=== PATIENT | female | born 1960 | race Caucasian/White ===

== ENCOUNTER 2016-07-15 18:04 | Inpatient (IN) | payer BC ==
[~2016-07-15] VITALS: Ht 167.6 cm; Wt 50.1 kg
[~2016-07-15 18:04] MED LIST: ALPR-138 PO; BP MED PO
[2016-07-15 18:08] VITALS: PULSE 89; RESP 18; TEMP 97.8; O2SAT 96
[2016-07-15 18:20] VITALS: BP 80/59; PULSE 81; RESP 16; O2SAT 98
[2016-07-15] MEDS ORDERED: OMEP20TA PO (18:30)
[2016-07-15] MEDS ORDERED: ALPR.25 PO (18:30)
[2016-07-15] MEDS ORDERED: LISI-515 PO (18:30)
[2016-07-15] MEDS ORDERED: LORA-373 PO (18:30)
[2016-07-15] MEDS ORDERED: LEXA20TA PO (18:30)
[2016-07-15] MEDS ORDERED: SODIUM CHLOR 0.9% 1000 ML INJ 1,000 ML IV ONE (18:45)
--- NOTE | 2016-07-15 18:46 | PD ---
HPI Chief Complaint: Syncope/Near-Syncope Time Seen by Provider: 18:34 Travel History International Travel<30 days: No Contact w/Intl Traveler<30days: No Traveled to known affect area: No History of Present Illness HPI This 55-year-old female presents after a fall at home. She has been having vomiting and diarrhea throughout the day. She got up to go to the bathroom and got very faint and fell to the ground. She is not sure if she passed out completely. She doesn't think so area and she was incontinent of stool. She was able to get back up. She hit her face. She does have a history of anxiety and hypertension. She is currently on Xanax and lorazepam. She is not supposed to take them together but she took both of them this morning. She had been a heavy drinker but stopped drinking on June 29. She stopped drinking because her doctor told her she had some abnormal liver function. She says that she has had 3 episodes today where she almost fell. She has been taking ensure to try to gain some weight PFSH Past Medical History Hx Anticoagulant Therapy: No Arthritis: Yes (NECK) Anxiety: Yes Depression: Yes Cancer: Yes (UTERINE) Cardiovascular Problems: Yes (HTN, CHOL) Diabetes: No Diminished Hearing: No Endocrine: No Genitourinary: No Hypertension: Yes Immune Disorder: No Musculoskeletal: Yes (TMJ) Neurologic: No Psychiatric: Yes Reproductive: No Respiratory: No Immunizations Current: Yes Tetanus Vaccination: < 5 Years Influenza Vaccination: Yes ?: Not Past Surgical History Gynecologic Surgery: Yes (UTERINE CA) Hysterectomy: Yes (WHEN PT WAS 21 Y.O) Other Surgery: Yes (TUMOR REMOVED FROM RIGHT NECK BREAST AUG DEVIATED SEPTUM) Social History Alcohol Use: No Tobacco Use: Yes (2 PPD) Substance Use: No Allergies-Medications (Allergen,Severity, Reaction): Coded Allergies: Codeine (Verified Allergy, Severe, 07/15/16) Reported Meds & Prescriptions Reported Meds & Active Scripts Active Reported Lisinopril 20 Mg Tab 20 Mg PO DAILY Lorazepam 0.5 Mg Tab 0.5 Mg PO BID PRN Xanax (Alprazolam) 0.25 Mg Tab 0.25 Mg PO Q8H PRN Lexapro (Escitalopram Oxalate) 20 Mg Tab 20 Mg PO DAILY Omeprazole 20 Mg Tab 20 Mg PO DAILY Review of Systems General / Constitutional: No: Fever, Chills Eyes: No: Diploplia, Blurred Vision HENT: Positive: Lightheadedness, No: Headaches Cardiovascular: No: Chest Pain or Discomfort, Palpitations Respiratory: No: Cough, Shortness of Breath Gastrointestinal: Positive: Vomiting, Diarrhea Genitourinary: No: Frequency Musculoskeletal: Positive: Myalgias, Pain Skin: No Rash Neurologic: Positive: Weakness, Dizziness, No: Focal Abnormalities Psychiatric: Positive: Anxiety Endocrine: No: Heat Intolerance Hematologic/Lymphatic: No: Easy Bruising Physical Exam Narrative GENERAL: Well-developed female. SKIN: Focused skin assessment warm/dry. HEAD: Atraumatic. Normocephalic. EYES: Pupils equal and round. No scleral icterus. No injection or drainage. ENT: There is dried blood in the nose. Nose is quite tender and swollen. Mucous membranes dry NECK: Trachea midline. No JVD. CARDIOVASCULAR: Regular rate and rhythm. No murmur appreciated. RESPIRATORY: No accessory muscle use. Clear to auscultation. Breath sounds equal bilaterally. GASTROINTESTINAL: Abdomen soft, non-tender, nondistended. Hepatic and splenic margins not palpable. MUSCULOSKELETAL: No obvious deformities. No clubbing. No cyanosis. No edema. There is swelling and tenderness of the right shoulder. Movement causes a lot of pain. Skin is intact. Distal pulses and sensation are intact NEUROLOGICAL: Awake and alert. No obvious cranial nerve deficits. Motor grossly within normal limits. Normal speech. PSYCHIATRIC: Appropriate mood and affect; insight and judgment normal. Data Data Last Documented VS Vital Signs Date Time Temp Pulse Resp B/P Pulse Ox O2 Delivery O2 Flow Rate FiO2 07/15/16 19:09 75 18 109/68 100 Room Air 07/15/16 18:08 97.8 Orders Electrocardiogram (07/15/16 18:41) Complete Blood Count With Diff (07/15/16 18:41) Comprehensive Metabolic Panel (07/15/16 18:41) Troponin I (07/15/16 18:41) Prothrombin Time / Inr (Pt) (07/15/16 18:41) Act Partial Throm Time (Ptt) (07/15/16 18:41) Urinalysis - C+S If Indicated (07/15/16 18:41) Magnesium (Mg) (07/15/16 18:41) Ct Brain W/O Iv Contrast(Rout) (07/15/16 18:41) Ct Facial Bones W/O Iv Cont (07/15/16 18:41) Drug Screen, Random Urine (07/15/16 18:41) Alcohol (Ethanol) (07/15/16 18:41) Sodium Chlor 0.9% 1000 Ml Inj (Ns 1000 M (07/15/16 18:45) Ondansetron Inj (Zofran Inj) (07/15/16 19:15) Morphine Inj (Morphine Inj) (07/15/16 19:15) Potassium Chlor 10 Meq Premix (Kcl 10 Me (07/15/16 19:30) Shoulder, Limited(2vws) (07/15/16 18:41) Labs Laboratory Tests Test 07/15/16 18:40 White Blood Count 14.8 TH/MM3 Red Blood Count 4.05 MIL/MM3 Hemoglobin 12.5 GM/DL Hematocrit 36.7 % Mean Corpuscular Volume 90.5 FL Mean Corpuscular Hemoglobin 30.8 PG Mean Corpuscular Hemoglobin 34.1 % Concent Red Cell Distribution Width 11.5 % Platelet Count 344 TH/MM3 Mean Platelet Volume 8.1 FL Neutrophils (%) (Auto) 90.2 % Lymphocytes (%) (Auto) 5.8 % Monocytes (%) (Auto) 3.5 % Eosinophils (%) (Auto) 0.3 % Basophils (%) (Auto) 0.2 % Neutrophils # (Auto) 13.4 TH/MM3 Lymphocytes # (Auto) 0.9 TH/MM3 Monocytes # (Auto) 0.5 TH/MM3 Eosinophils # (Auto) 0.0 TH/MM3 Basophils # (Auto) 0.0 TH/MM3 CBC Comment DIFF FINAL Differential Comment Prothrombin Time 10.0 SEC Prothromb Time International 0.9 RATIO Ratio Activated Partial 25.9 SEC Thromboplast Time Sodium Level 136 MEQ/L Potassium Level 3.1 MEQ/L Chloride Level 96 MEQ/L Carbon Dioxide Level 27.4 MEQ/L Anion Gap 13 MEQ/L Blood Urea Nitrogen 17 MG/DL Creatinine 2.10 MG/DL Estimat Glomerular Filtration 24 ML/MIN Rate Random Glucose 170 MG/DL Calcium Level 9.1 MG/DL Magnesium Level 2.1 MG/DL Total Bilirubin 0.3 MG/DL Aspartate Amino Transf 17 U/L (AST/SGOT) Alanine Aminotransferase 19 U/L (ALT/SGPT) Alkaline Phosphatase 76 U/L Troponin I LESS THAN 0.02 NG/ML Total Protein 7.7 GM/DL Albumin 3.5 GM/DL Ethyl Alcohol Level LESS THAN 3 MG/DL MDM Medical Decision Making Medical Screen Exam Complete: Yes Emergency Medical Condition: Yes Medical Record Reviewed: Yes Differential Diagnosis Differential includes gastroenteritis, dehydration, fractured shoulder, subdural hemorrhage, fractured nose Narrative Course X-ray shows surgical neck fracture of the right humerus with mild angulation and displacement. Blood pressure has been low at 80/60. Blood work shows that her creatinine today is 2.1 which is significantly higher than it has been in the past. CT of the brain is negative. CT facial bones show slightly depressed fracture of the tip of the nose Diagnosis Primary Impression: Acute kidney injury Additional Impression: Fracture of right humerus Sergio Antonio MD July 15, 2016 18:46
[2016-07-15 19:01] LABS: AUTOMATED NEUTROPHIL # 13.4 TH/MM3 (1.8-7.7); BASOPHIL % 0.2 % (0.0-2.0); EOSINOPHIL % 0.3 % (0.0-4.0); HEMATOCRIT 36.7 % (35.0-46.0); HEMO FLAGS DIFF FINAL; LYMPH % 5.8 % (9.0-44.0); LYMPHOCYTE # 0.9 TH/MM3 (1.0-4.8); MEAN CELL VOLUME 90.5 FL (80.0-100.0); MEAN CORPUSCULAR HEMOGLOBIN 30.8 PG (27.0-34.0); MEAN CORPUSCULAR HGB CONC 34.1 % (32.0-36.0); MONO % 3.5 % (0.0-8.0); NEUT % 90.2 % (16.0-70.0); PLATELET COUNT 344 TH/MM3 (150-450); RED BLOOD COUNT 4.05 MIL/MM3 (4.00-5.30); RED CELL DISTRIBUTION WIDTH 11.5 % (11.6-17.2); WHITE BLOOD COUNT 14.8 TH/MM3 (4.0-11.0)
[2016-07-15 19:09] VITALS: BP 109/68; PULSE 75; RESP 18; O2SAT 100
[2016-07-15 19:11] LABS: CHLORIDE 96 MEQ/L (98-107); POTASSIUM 3.1 MEQ/L (3.5-5.1); SODIUM (NA) 136 MEQ/L (136-145)
[2016-07-15 19:15] LABS: ANION GAP 13 MEQ/L (5-15); BICARBONATE 27.4 MEQ/L (21.0-32.0); BLOOD UREA NITROGEN 17 MG/DL (7-18); MAGNESIUM 2.1 MG/DL (1.5-2.5)
[2016-07-15] MEDS ORDERED: ONDANSETRON HCL 4 MG/2 ML VIAL IV PUSH ONE (19:15)
[2016-07-15] MEDS ORDERED: MORPHINE SULFATE 8 MG/ML INJ IV PUSH ONE (19:15)
[2016-07-15 19:17] LABS: APTT (PATIENT) 25.9 SEC (24.3-30.1); INTERNATIONAL NORMALIZED RATIO 0.9 RATIO
[2016-07-15 19:18] LABS: ALT (GPT) 19 U/L (10-53); AST (GOT) 17 U/L (15-37); GLOMERULAR FILTRATION RATE 24 ML/MIN (>89)
[2016-07-15 19:20] LABS: TOTAL BILIRUBIN ADULT 0.3 MG/DL (0.2-1.0)
[2016-07-15 19:21] LABS: ALKALINE PHOSPHATASE 76 U/L (45-117)
[2016-07-15] MEDS ORDERED: POTASSIUM CHLOR 10 MEQ PREMIX 100 ML IV ONE (19:30)
--- NOTE | 2016-07-15 19:42 | RADHPO ---
EXAM DATE/TIME: 07/15/2016 19:06 [facility] COMPARISON: No previous studies available for comparison. INDICATIONS : Right shoulder pain post fall. MEDICAL HISTORY : None. SURGICAL HISTORY : None. ENCOUNTER: Initial ACUITY: 1 day PAIN SCORE: 10/10 LOCATION: Right upper extremity FINDINGS: There is a comminuted fracture in the surgical neck region of the right humerus. There is mild anteri or displacement and mild posterolateral angulation deformity. Humeral head and greater tuberosity matt ssly intact. No subluxation. CONCLUSION: Surgical neck fracture of the right humerus with mild angulation and displacement deformity. Baron Jimenez MD on July 15, 2016 at 19:40 Board Certified Radiologist. This report was verified electronically.
--- NOTE | 2016-07-15 20:02 | RADHPO ---
EXAM DATE/TIME: 07/15/2016 19:39 [facility] COMPARISON: CT BRAIN W/O CONTRAST, June 02, 2011, 13:49. INDICATIONS : Syncopal episode. Passed out, fell and hit her face. RADIATION DOSE: 58.53 CTDIvol (mGy) MEDICAL HISTORY : Hypertension. Uterine cancer. SURGICAL HISTORY : Hysterectomy. ENCOUNTER: Initial ACUITY: 1 day PAIN SCALE: 6/10 LOCATION: cranial TECHNIQUE: Multiple contiguous axial images were obtained of the head. Using automated exposure control and adj ustment of the mA and/or kV according to patient size, radiation dose was kept as low as reasonably a chievable to obtain optimal diagnostic quality images. FINDINGS: CEREBRUM: The ventricles are normal for age. No evidence of midline shift, mass lesion, hemorrhage or acute in farction. No extra-axial fluid collections are seen. POSTERIOR FOSSA: The cerebellum and brainstem are intact. The 4th ventricle is midline. The cerebellopontine angle i s unremarkable. EXTRACRANIAL: The visualized portion of the orbits is intact. SKULL: The calvaria is intact. No evidence of skull fracture. CONCLUSION: No bleed or other acute intracranial abnormality. Baron Jimenez MD on July 15, 2016 at 20:00 Board Certified Radiologist. This report was verified electronically.
--- NOTE | 2016-07-15 20:06 | RADHPO ---
EXAM DATE/TIME: 07/15/2016 19:39 [facility] COMPARISON: No previous studies available for comparison. INDICATIONS : Syncopal episode. Passed out, fell and hit her face. RADIATION DOSE: 34.88 CTDIvol (mGy) MEDICAL HISTORY : Hypertension. Uterine cancer. SURGICAL HISTORY : Hysterectomy. ENCOUNTER: Initial ACUITY: 1 day PAIN SCORE: 7/10 LOCATION: facial TECHNIQUE: Volumetric scanning of the facial bones was performed. Using automated exposure control and adjustme nt of the mA and/or kV according to patient size, radiation dose was kept as low as reasonably achiev able to obtain optimal diagnostic quality images. FINDINGS: Minimal depressed fracture seen in the tip of the nasion. No other facial fractures are demonstrated. The orbits are intact. Small amounts of blood are seen in both maxillary air cells. 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 CONCLUSION: Slightly depressed fracture of the tip of the nose. Baron Jimenez MD on July 15, 2016 at 20:02 Board Certified Radiologist. This report was verified electronically.
[2016-07-15 20:10] VITALS: BP 91/59; PULSE 72; RESP 18; O2SAT 98
[2016-07-15] MEDS ORDERED: SODIUM CHLORIDE 0.9% FLUSH 10 ML FLUSH IV FLUSH PRN (20:30)
[2016-07-15] MEDS ORDERED: ACETAMINOPHEN 325 MG TAB PO PRN (20:30)
[2016-07-15] MEDS ORDERED: BISACODYL 10 MG SUPP RECTAL PRN (20:30)
[2016-07-15] MEDS ORDERED: POTASSIUM CHLORIDE 20 MEQ CONTROLLED RELEASE TAB PO ONE (20:30)
[2016-07-15] MEDS: SODIUM CHLORIDE 0.9% FLUSH 10 ML FLUSH IV FLUSH SCH (21:00)
[2016-07-15] MEDS: SODIUM CHLOR 0.9% 1000 ML INJ 1,000 ML IV SCH (21:16)
[2016-07-15 21:17] VITALS: BP 100/60; PULSE 81; RESP 18; O2SAT 96
[2016-07-15] MEDS: ALPRAZolam 0.25 MG TAB PO PRN (22:38)
[2016-07-15] MEDS: MORPHINE SULFATE 4 MG/ML INJ IV PRN (22:39)
[2016-07-15] MEDS ORDERED: NICOTINE 21 MG/24 HR PATCH T-DERMAL ONE (23:30)
[2016-07-16 00:06] LABS: BLOOD, URINE LARGE (NEG); GLUCOSE,URINE NEG (NEG); KETONE, URINE NEG (NEG); NITRITE,URINE NEG (NEG)
[2016-07-16 00:11] LABS: URINE COLOR YELLOW (YELLW/STRAW)
[2016-07-16 00:12] LABS: BACTERIA, URINE MOD /hpf; COMMENT (UR) CULTURE INDICATED; CULTURE IF INDICATED CULTURE INDICATED
[2016-07-16 00:25] LABS: AMPHETAMINE, URINE NEG (NEG); BARBITURATES, URINE NEG (NEG)
[2016-07-16 00:30] VITALS: BP 93/55; PULSE 76; RESP 16; TEMP 97.9; O2SAT 94
[2016-07-16 00:42] LABS: COCAINE, URINE NEG (NEG)
[2016-07-16] MEDS: MORPHINE SULFATE 4 MG/ML INJ IV PRN ×2 (02:12→05:41)
[2016-07-16] MEDS: SODIUM CHLOR 0.9% 1000 ML INJ 1,000 ML IV SCH ×2 (05:42→08:42)
[2016-07-16] MEDS: ONDANSETRON HCL 4 MG/2 ML VIAL IVP PRN (05:48)
[2016-07-16 08:00] VITALS: BP 94/63; PULSE 70; RESP 19; TEMP 97.2; O2SAT 100
[2016-07-16 08:38] LABS: AUTOMATED NEUTROPHIL # 6.8 TH/MM3 (1.8-7.7); BASOPHIL % 0.3 % (0.0-2.0); EOSINOPHIL % 0.4 % (0.0-4.0); HEMATOCRIT 28.7 % (35.0-46.0); HEMO FLAGS DIFF FINAL; LYMPH % 22.7 % (9.0-44.0); LYMPHOCYTE # 2.2 TH/MM3 (1.0-4.8); MEAN CELL VOLUME 91.4 FL (80.0-100.0); MEAN CORPUSCULAR HEMOGLOBIN 29.9 PG (27.0-34.0); MEAN CORPUSCULAR HGB CONC 32.8 % (32.0-36.0); MONO % 7.7 % (0.0-8.0); NEUT % 68.9 % (16.0-70.0); PLATELET COUNT 256 TH/MM3 (150-450); RED BLOOD COUNT 3.14 MIL/MM3 (4.00-5.30); RED CELL DISTRIBUTION WIDTH 11.7 % (11.6-17.2); WHITE BLOOD COUNT 9.7 TH/MM3 (4.0-11.0)
[2016-07-16] MEDS: SODIUM CHLORIDE 0.9% FLUSH 10 ML FLUSH IV FLUSH SCH ×2 (08:39→20:23)
[2016-07-16] MEDS: CIPROFLOXACIN 400 MG PREMIX 200 ML IV SCH (08:39)
[2016-07-16] MEDS: oxyCODONE/ACETAMINOPHEN 7.5 MG/325 MG TAB PO PRN ×4 (08:40→22:42)
[2016-07-16] MEDS: ESCITALOPRAM OXALATE 20 MG TAB PO SCH (08:40)
[2016-07-16] MEDS: PANTOPRAZOLE SOD 20 MG DELAYED RELEASE TAB PO SCH (08:40)
[2016-07-16 09:05] LABS: ALKALINE PHOSPHATASE 59 U/L (45-117); ALT (GPT) 15 U/L (10-53); ANION GAP 9 MEQ/L (5-15); AST (GOT) 21 U/L (15-37); BICARBONATE 23.3 MEQ/L (21.0-32.0); BLOOD UREA NITROGEN 13 MG/DL (7-18); CHLORIDE 107 MEQ/L (98-107); GLOMERULAR FILTRATION RATE 59 ML/MIN (>89); POTASSIUM 3.6 MEQ/L (3.5-5.1); SODIUM (NA) 139 MEQ/L (136-145); TOTAL BILIRUBIN ADULT 0.4 MG/DL (0.2-1.0)
[2016-07-16] MEDS: HYDROmorphone HCL 2 MG TAB PO PRN ×3 (10:43→20:24)
[2016-07-16 12:01] VITALS: BP 95/56; PULSE 71; RESP 20; TEMP 97.2
--- NOTE | 2016-07-16 12:06 | HHI.HP ---
[facility] Ford Nowak M.D. Admission Diagnosis ACUTE KIDNEY INJURY, DEHYDRATION, FX R HUMERUS Diagnoses: (1) Fracture of right humerus (2) Acute kidney injury (3) Dehydration (4) Nicotine dependence (5) UTI (urinary tract infection) (6) Hypotension (7) Nose fracture Travel History International Travel<30 Days: No Contact w/Intl Traveler <30 Da: No Traveled to Known Affected Are: No History of Present Illness Mrs. Hernandez is a 55-year-old female admitted overnight. She was brought here secondary to a fall at home. Her fall she had a nose fracture and a right humerus fracture which is mildly displaced and angulated. Today she complains that her right shoulder keeps popping and is painful. She is in a sling. Other findings on admission were a urinary tract infection. The UTI may have been contributory to her fall. She additionally has been changing from Xanax to Ativan. She does admit that she excellently took Xanax with Ativan with strength being 0.25 mg and 0.5 mg respectively. This could've also contributed to her fall. She has been avoiding alcohol since June 29. She does smoke 2 packs per day. Previous surgery has included removal right neck tumor. She had no complications with surgery. She has no known lung or heart disease. No other complaints. When she came in she was also hypotensive but this has resolved her time. This morning she has mild hypokalemia. Review of Systems Constitutional: DENIES: Fever, Chills Eyes: DENIES: Blurred vision, Diplopia Ears, nose, mouth, throat: DENIES: Hearing loss, Vertigo, Oral lesions Respiratory: DENIES: Cough, Wheezing, Shortness of breath Cardiovascular: DENIES: Chest pain, Palpitations Gastrointestinal: DENIES: Abdominal pain, Black stools, Bloody stools Musculoskeletal: COMPLAINS OF: Joint pain Integumentary: DENIES: Abnormal pigmentation Hematologic/lymphatic: DENIES: Bruising Immunologic/allergic: DENIES: Eczema Neurologic: DENIES: Abnormal gait Psychiatric: DENIES: Anxiety, Confusion, Mood changes Past Family Social History Past Medical History Alcohol abuse (no longer drinks alcohol) Past Surgical History Removal of right neck tumor Reported Medications Reported Meds & Active Scripts Active Reported Lisinopril 20 Mg Tab 20 Mg PO DAILY Lorazepam 0.5 Mg Tab 0.5 Mg PO BID PRN Xanax (Alprazolam) 0.25 Mg Tab 0.25 Mg PO Q8H PRN Lexapro (Escitalopram Oxalate) 20 Mg Tab 20 Mg PO DAILY Omeprazole 20 Mg Tab 20 Mg PO DAILY Allergies: Coded Allergies: Codeine (Verified Allergy, Severe, 07/15/16) Active Ordered Medications Administered Medications Medications (Trade) Dose Ordered Sig/May Route PRN Reason Start Time Stop Time Status Last Admin Dose Admin Sodium Chloride (NS 1000 ml Inj) 1,000 ml @ 100 mls/hr Q10H IV 07/15/16 20:21 07/16/16 08:42 Sodium Chloride (NS Flush) 2 ml BID IV FLUSH 07/15/16 21:00 07/15/16 21:00 Ondansetron HCl (Zofran Inj) 4 mg Q6H PRN IVP NAUSEA OR VOMITING 07/15/16 20:30 07/16/16 05:48 Alprazolam (Xanax) 0.25 mg Q8H PRN PO ANXIETY 07/15/16 20:30 07/15/16 22:38 Escitalopram Oxalate (Lexapro) 20 mg DAILY PO 07/16/16 09:00 07/16/16 08:40 Pantoprazole Sodium 20 mg 20 mg DAILY PO 07/16/16 09:00 07/16/16 08:40 Ciprofloxacin/ Dextrose (Cipro 400 Mg Premix) 200 ml @ 200 mls/hr Q24H IV 07/16/16 08:00 07/16/16 08:39 Oxycodone/ Acetaminophen (Percocet 7.5-325 Mg) 1 tab Q4H PRN PO PAIN 3-10 07/16/16 08:30 07/16/16 08:40 Hydromorphone HCl (Dilaudid) 1 mg Q4H PRN PO BREAKTHROUGH PAIN 07/16/16 10:15 07/16/16 10:43 Family History Diabetes mellitus in mother Social History Smoking 2 packs per day No alcohol use No drug abuse Physical Exam Vital Signs Vital Signs Date Time Temp Pulse Resp B/P Pulse Ox O2 Delivery O2 Flow Rate FiO2 07/16/16 08:00 97.2 70 19 94/63 100 07/16/16 05:46 18 07/16/16 04:39 07/16/16 00:30 97.9 76 16 93/55 94 07/15/16 22:29 18 97 07/15/16 21:17 81 18 100/60 96 Room Air 07/15/16 21:17 83 18 97 Room Air 07/15/16 20:10 72 18 91/59 98 Room Air 07/15/16 20:08 18 07/15/16 19:09 75 18 109/68 100 Room Air 07/15/16 19:09 75 18 100 Room Air 07/15/16 18:20 81 16 80/59 98 Room Air 07/15/16 18:20 78 97 Room Air 07/15/16 18:08 97.8 89 18 96 Physical Exam GENERAL: NAD, A&Ox3 SKIN: Warm and dry. HEAD: Normocephalic. Bruising or bridge of nose EYES: No scleral icterus. No injection or drainage. NECK: Supple, trachea midline. No JVD or lymphadenopathy. CARDIOVASCULAR: Regular rate and rhythm without murmurs, gallops, or rubs. RESPIRATORY: Breath sounds equal bilaterally. No accessory muscle use. GASTROINTESTINAL: Abdomen soft, non-tender, nondistended. MUSCULOSKELETAL: No cyanosis, or edema. Right arm is in sling and tender just distal to the shoulder joint. Laboratory Laboratory Tests Test 07/15/16 07/16/16 07/16/16 18:40 00:00 07:46 Prothrombin Time 10.0 Prothromb Time International 0.9 Ratio Activated Partial 25.9 Thromboplast Time Sodium Level 136 139 Potassium Level 3.1 3.6 Chloride Level 96 107 Carbon Dioxide Level 27.4 23.3 Anion Gap 13 9 Blood Urea Nitrogen 17 13 Creatinine 2.10 0.98 Estimat Glomerular Filtration 24 59 Rate Random Glucose 170 83 Calcium Level 9.1 8.1 Magnesium Level 2.1 Total Bilirubin 0.3 0.4 Aspartate Amino Transf 17 21 (AST/SGOT) Alanine Aminotransferase 19 15 (ALT/SGPT) Alkaline Phosphatase 76 59 Troponin I LESS THAN 0.02 Total Protein 7.7 5.9 Albumin 3.5 2.6 Ethyl Alcohol Level LESS THAN 3 White Blood Count 14.8 9.7 Red Blood Count 4.05 3.14 Hemoglobin 12.5 9.4 Hematocrit 36.7 28.7 Mean Corpuscular Volume 90.5 91.4 Mean Corpuscular Hemoglobin 30.8 29.9 Mean Corpuscular Hemoglobin 34.1 32.8 Concent Red Cell Distribution Width 11.5 11.7 Platelet Count 344 256 Mean Platelet Volume 8.1 8.4 Neutrophils (%) (Auto) 90.2 68.9 Lymphocytes (%) (Auto) 5.8 22.7 Monocytes (%) (Auto) 3.5 7.7 Eosinophils (%) (Auto) 0.3 0.4 Basophils (%) (Auto) 0.2 0.3 Neutrophils # (Auto) 13.4 6.8 Lymphocytes # (Auto) 0.9 2.2 Monocytes # (Auto) 0.5 0.7 Eosinophils # (Auto) 0.0 0.0 Basophils # (Auto) 0.0 0.0 CBC Comment DIFF FINAL DIFF FINAL Differential Comment Urine Color YELLOW Urine Turbidity SLIGHT Urine pH 6.0 Urine Specific [place] 1.012 Urine Protein 30 Urine Glucose (UA) NEG Urine Ketones NEG Urine Occult Blood LARGE Urine Nitrite NEG Urine Bilirubin NEG Urine Leukocyte Esterase SMALL Urine RBC 10-14 Urine WBC 6-8 Urine Squamous Epithelial 6-8 Cells Urine Bacteria MOD Microscopic Urinalysis Comment CULTURE INDICATED Urine Opiates Screen POS Urine Barbiturates Screen NEG Urine Amphetamines Screen NEG Urine Benzodiazepines Screen POS Urine Cocaine Screen NEG Urine Cannabinoids Screen NEG Date/Time Procedure Status Source Growth 07/16/16 00:00 Urine Culture Received Urine Clean Catch Pending Result Diagram: 07/16/16 0746 07/16/16 0746 Imaging Last Impressions Shoulder X-Ray 07/15/161840 Signed Impressions: Service Date/Time: Friday, July 15, 2016 19:06 - CONCLUSION: Surgical neck fracture of the right humerus with mild angulation and displacement deformity. Baron Jimenez MD Maxillofacial CT [id number]/15/[id number] Signed Impressions: Service Date/Time: Friday, July 15, 2016 19:39 - CONCLUSION: Slightly depressed fracture of the tip of the nose. Baron Jimenez MD Head CT [id number]/[id number] Signed Impressions: Service Date/Time: Friday, July 15, 2016 19:39 - CONCLUSION: No bleed or other acute intracranial abnormality. Baron Jimenez MD Assessment and Plan Problem List: (1) Fracture of right humerus ICD Code: S42.301A Status: Acute (2) Dehydration ICD Code: E86.0 Status: Acute (3) Nicotine dependence ICD Code: F17.200 Status: Acute (4) UTI (urinary tract infection) ICD Code: N39.0 Status: Acute (5) Hypotension ICD Code: I95.9 Status: Acute (6) Nose fracture ICD Code: S02.2XXA Status: Acute (7) Acute kidney injury ICD Code: N17.9 Status: Acute Assessment and Plan Right humerus fracture She may need surgery Orthopedics consulted When necessary pain treatments Bedrest for now When necessary Percocet for pain When necessary oral Dilaudid for breakthrough pain Patient is medically cleared for surgery, if needed, her EKG is within normal limits, no reported heart or lung disease, her primary risk factor is a history of smoking. Urinary tract infection Rocephin Follow urine culture Gen. anxiety disorder When necessary Xanax Follow clinically Hypotension Resolved Monitor for recurrence Hypokalemia Replace as needed monitor for recurrence Nasal fracture No displacement on preliminary exam Follow as an outpatient Nicotine dependence NicoDerm She recommended to quit Acute kidney injury Dehydration With IV hydration both of these have resolved. DVT prophylaxis Lovenox Hold Lovenox if surgery will take place Physician Certification 2 Midnight Certification Type: Admission for Inpatient Services Order for Inpatient Services The services are ordered in accordance with Medicare regulations or non- Medicare payer requirements, as applicable. In the case of services not specified as inpatient-only, they are appropriately provided as inpatient services in accordance with the 2-midnight benchmark. Estimated LOS (days): 2 days is the estimated time the patient will need to remain in the hospital, assuming treatment plan goals are met and no additional complications. Post-Hospital Plan: Home Problem Qualifiers (1) Fracture of right humerus: Bashir Morrissey MD July 16, 2016 12:06 pm
[2016-07-16] MEDS: ENOXAPARIN SODIUM 40 MG/0.4 ML SYRINGE SQ SCH (13:11)
[2016-07-16] MEDS: LACTOBACILLUS ACIDOPHILUS TAB PO SCH ×2 (13:11→17:21)
[2016-07-16] MEDS: ALPRAZolam 0.25 MG TAB PO PRN ×2 (13:13→22:34)
[2016-07-16 16:01] VITALS: BP 86/57; PULSE 61; RESP 20; TEMP 97.5; O2SAT 95
--- NOTE | 2016-07-16 16:13 | EKG ---
Date Performed: 07/15/2016 Time Performed: 18:49:22 PTAGE: 55 years EKG: Sinus rhythm RSR' in V1 Compared to prior tracing no significant change Normal ECG PREVIOUS TRACING : 05/02/2013 12.13 DOCTOR: Ashleigh Bradshaw Interpretating Date/Time 07/16/2016 16:11:48
[2016-07-16] MEDS: REMOVE OLD PATCH T-DERMAL SCH (20:28)
[2016-07-16 21:41] VITALS: BP 98/49; PULSE 64; RESP 16; TEMP 97; O2SAT 96
[2016-07-17 00:48] VITALS: BP 106/53; PULSE 73; RESP 18; TEMP 97.6; O2SAT 97
[2016-07-17] MEDS: SODIUM CHLOR 0.9% 1000 ML INJ 1,000 ML IV SCH ×3 (02:31→21:44)
[2016-07-17] MEDS: oxyCODONE/ACETAMINOPHEN 7.5 MG/325 MG TAB PO PRN ×5 (03:25→21:48)
[2016-07-17 08:00] VITALS: BP 135/69; PULSE 70; RESP 20; TEMP 97.1; O2SAT 91
[2016-07-17] MEDS: NICOTINE 21 MG/24 HR PATCH T-DERMAL SCH (08:26)
[2016-07-17] MEDS: CIPROFLOXACIN 400 MG PREMIX 200 ML IV SCH (08:27)
[2016-07-17] MEDS: PANTOPRAZOLE SOD 20 MG DELAYED RELEASE TAB PO SCH (08:27)
[2016-07-17] MEDS: SODIUM CHLORIDE 0.9% FLUSH 10 ML FLUSH IV FLUSH SCH ×2 (08:28→21:44)
[2016-07-17] MEDS: LACTOBACILLUS ACIDOPHILUS TAB PO SCH ×3 (08:28→17:30)
[2016-07-17] MEDS: ESCITALOPRAM OXALATE 20 MG TAB PO SCH (08:28)
[2016-07-17] MEDS: ONDANSETRON HCL 4 MG/2 ML VIAL IVP PRN (08:33)
[2016-07-17 09:43] LABS: HEMATOCRIT 28.1 % (35.0-46.0); MEAN CELL VOLUME 90.2 FL (80.0-100.0); MEAN CORPUSCULAR HEMOGLOBIN 29.9 PG (27.0-34.0); MEAN CORPUSCULAR HGB CONC 33.2 % (32.0-36.0); PLATELET COUNT 256 TH/MM3 (150-450); RED BLOOD COUNT 3.11 MIL/MM3 (4.00-5.30); RED CELL DISTRIBUTION WIDTH 11.2 % (11.6-17.2); REVIEW FLAG FINAL; WHITE BLOOD COUNT 10.4 TH/MM3 (4.0-11.0)
[2016-07-17 10:02] LABS: POTASSIUM 3.3 MEQ/L (3.5-5.1)
[2016-07-17 10:07] LABS: BICARBONATE 21.9 MEQ/L (21.0-32.0)
[2016-07-17] MEDS: HYDROmorphone HCL 2 MG TAB PO PRN ×3 (10:54→20:00)
--- NOTE | 2016-07-17 10:57 | HHI.PR ---
Subjective Remarks Mrs. Paul continues to have right proximal humerus pain. With any movement she reports clicking in severe pain. Imaging reviewed by orthopedics and her fracture does not need surgery. Patient feels she might benefit from more rigid support. She is not able to ambulate or get out of bed with PT. No other new complaints. No recurrence of dehydration or concerns for kidney disease. Objective Vital Signs Date Time Temp Pulse Resp B/P Pulse Ox O2 Delivery O2 Flow Rate FiO2 07/17/16 08:00 97.1 70 20 135/69 91 07/17/16 05:11 07/17/16 00:48 97.6 73 18 106/53 97 07/16/16 21:41 97.0 64 16 98/49 96 07/16/16 16:01 97.5 61 20 86/57 95 07/16/16 12:01 97.2 71 20 95/56 I/O 07/16/16 07/16/16 07/16/16 07/17/16 07/17/16 07/17/16 07:00 15:00 23:00 07:00 15:00 23:00 Intake Total 2450 ml 300 ml 800 ml Output Total 250 ml 600 ml Balance -250 ml 2450 ml -300 ml 800 ml Intake Oral 800 ml IV Total 1650 ml 300 ml 800 ml Output Urine Total 250 ml 600 ml # Voids 0 6 # Bowel Movements 0 0 0 Result Diagram: 07/17/1692107/17/16921 Imaging Last Impressions Shoulder X-Ray 07/15/161840 Signed Impressions: Service Date/Time: Friday, July 15, 2016 19:06 - CONCLUSION: Surgical neck fracture of the right humerus with mild angulation and displacement deformity. Baron Jimenez MD Maxillofacial CT 07/15/161840 Signed Impressions: Service Date/Time: Friday, July 15, 2016 19:39 - CONCLUSION: Slightly depressed fracture of the tip of the nose. Baron Jimenez MD Head CT 07/15/161840 Signed Impressions: Service Date/Time: Friday, July 15, 2016 19:39 - CONCLUSION: No bleed or other acute intracranial abnormality. Baron Jimenez MD Objective Remarks GENERAL: NAD, A&Ox3 SKIN: Warm and dry. HEAD: Normocephalic. EYES: No scleral icterus. No injection or drainage. NECK: Supple, trachea midline. No JVD or lymphadenopathy. CARDIOVASCULAR: Regular rate and rhythm without murmurs, gallops, or rubs. RESPIRATORY: Breath sounds equal bilaterally. No accessory muscle use. GASTROINTESTINAL: Abdomen soft, non-tender, nondistended. MUSCULOSKELETAL: No cyanosis, or edema. Right arm is in a nonrigid splint Medications and IVs Administered Medications Medications (Trade) Dose Ordered Sig/May Route PRN Reason Start Time Stop Time Status Last Admin Dose Admin Sodium Chloride (NS 1000 ml Inj) 1,000 ml @ 100 mls/hr Q10H IV 07/15/16 20:21 07/17/16 08:27 Sodium Chloride (NS Flush) 2 ml BID IV FLUSH 07/15/16 21:00 07/16/16 20:23 Ondansetron HCl (Zofran Inj) 4 mg Q6H PRN IVP NAUSEA OR VOMITING 07/15/16 20:30 07/17/16 08:33 Alprazolam (Xanax) 0.25 mg Q8H PRN PO ANXIETY 07/15/16 20:30 07/16/16 22:34 Escitalopram Oxalate (Lexapro) 20 mg DAILY PO 07/16/16 09:00 07/17/16 08:28 Pantoprazole Sodium 20 mg 20 mg DAILY PO 07/16/16 09:00 07/17/16 08:27 Ciprofloxacin/ Dextrose (Cipro 400 Mg Premix) 200 ml @ 200 mls/hr Q24H IV 07/16/16 08:00 07/17/16 08:27 Oxycodone/ Acetaminophen (Percocet 7.5-325 Mg) 1 tab Q4H PRN PO PAIN 3-10 07/16/16 08:30 07/17/16 08:27 Lactobacillus Acidophilus (Lactinex) 1 tab TID PO 07/16/16 13:00 07/17/16 08:28 Hydromorphone HCl (Dilaudid) 1 mg Q4H PRN PO BREAKTHROUGH PAIN 07/16/16 10:15 07/16/16 20:24 Enoxaparin Sodium (Lovenox Inj) 40 mg Q24H SQ 07/16/16 13:00 07/16/16 13:11 Nicotine (Habitrol 21 Mg Patch.24 Hr) 1 patch DAILY T-DERMAL 07/17/16 09:00 07/17/16 08:26 Miscellaneous Information 1 HS T-DERMAL 07/16/16 21:00 07/16/16 20:28 A/P Problem List: (1) Dehydration ICD Code: E86.0 (2) Nicotine dependence ICD Code: F17.200 (3) UTI (urinary tract infection) ICD Code: N39.0 (4) Hypotension ICD Code: I95.9 (5) Nose fracture ICD Code: S02.2XXA (6) Acute kidney injury ICD Code: N17.9 (7) Fracture of right humerus ICD Code: S42.301A Assessment and Plan Assessment and Plan 55-year-old female admitted with dehydration, acute kidney injury, and right proximal humerus fracture. Her fracture is non-surgical per orthopedic. Thus far she is having problems with in bed movement and has not yet ambulated secondary to pain. I will change her from a splint through a right shoulder immobilizer, to see if she functions better like this. Right humerus fracture No surgery needed per orthopedic. Orthopedics recommendations are appreciated PT When necessary Percocet for pain When necessary oral Dilaudid for breakthrough pain Urinary tract infection Rocephin Follow urine culture Gen. anxiety disorder When necessary Xanax Follow clinically Hypotension Resolved Monitor for recurrence Hypokalemia Replace as needed monitor for recurrence Nasal fracture No displacement on preliminary exam Follow as an outpatient Nicotine dependence NicoDerm She recommended to quit Acute kidney injury Dehydration With IV hydration both of these have resolved. DVT prophylaxis Lovenox Problem Qualifiers (1) Fracture of right humerus: Bashir Morrissey MD July 17, 2016 10:57
[2016-07-17] MEDS ORDERED: POTASSIUM CHLORIDE 10 MEQ CONTROLLED RELEASE TAB PO ONE (11:00)
[2016-07-17 12:00] VITALS: BP 128/72; PULSE 75; RESP 20; TEMP 98.1; O2SAT 91
[2016-07-17] MEDS: ENOXAPARIN SODIUM 40 MG/0.4 ML SYRINGE SQ SCH (12:28)
[2016-07-17] MEDS: ALPRAZolam 0.25 MG TAB PO PRN (12:29)
[2016-07-17 16:00] VITALS: BP 119/69; PULSE 80; RESP 20; TEMP 98.2; O2SAT 92
--- NOTE | 2016-07-17 16:14 | MB ---
cc: ADA COTTO M.D. DATE OF CONSULTATION: 07/17/2016. REASON FOR CONSULTATION: Right proximal humerus fracture. HISTORY OF PRESENT ILLNESS: This patient is a 55-year-old female who fell at home injuring her right shoulder. She complains of pain and swelling in the right shoulder and crepitus. She states it is a constant throbbing aching pain. Upon admission, she was found to have some dehydration and a urinary tract infection. She was admitted to the medical service and orthopedic surgery was consulted for further evaluation and management of the injury and condition. She smokes two packs a day. PAST MEDICAL HISTORY: Her past medical history is positive for: 1. Anxiety. 2. Depression. 3. Gastroesophageal reflux disease (GERD). 5. Hypertension. ALLERGIES: Codeine. MEDICATIONS: 1. Lisinopril. 2. Lorazepam. 3. Xanax. 4. Lexapro. 5. Omeprazole. PAST SURGICAL HISTORY: Removal of a right neck tumor. SOCIAL HISTORY: She has a history of heavy alcohol consumption and abuse. She states she no longer drinks but again, still smokes two packs a day. Denies drug use. FAMILY HISTORY: Family history is positive for diabetes on the mother's side. REVIEW OF SYSTEMS: The review of systems is negative for twelve systems other than the history of present illness. PHYSICAL EXAMINATION: GENERAL: In general, she is awake, alert and lying in bed in no acute distress. HEAD, EYES, EARS, NOSE, THROAT: Normocephalic and atraumatic. Pupils round and reactive to light. Extraocular muscles intact. NECK: The neck is supple. LUNGS: Clear. HEART: Regular rate and rhythm. ABDOMEN: Abdomen soft and nontender. EXTREMITIES: The right upper extremity shows mild swelling and tenderness to palpation in the region of the proximal humerus. She can flex and extend her elbow, wrist and digits. She is currently in a sling with an LE wrap wrapped around her body and also around her neck. IMAGING STUDIES: AP and lateral right shoulder were reviewed and show a proximal humerus fracture with only mild displacement. Osteopenia. LABORATORY STUDIES: White count 9.7, hematocrit 28, platelet count 256,000. Creatinine is 0.98, glucose 83. IMPRESSION: 1. 55-year-old female status post fall with right proximal humerus fracture. 2. Two packs per day smoker. 3. Osteopenia. 4. Dehydration. 5. Urinary tract infection. PLAN: I discussed the diagnosis with patient. I recommend nonoperative treatment. I feel as though the sling and LE wrap she has is not adequate for her and I do recommend a sling and swathe immobilizer. She can follow up with the undersigned in the [facility] after discharge from the hospital. MD ANGELIKA Helm/RAFAEL /3:52 PM /4:09 PM
[2016-07-17] MEDS: REMOVE OLD PATCH T-DERMAL SCH (21:00)
[2016-07-17 21:03] VITALS: BP 126/64; PULSE 73; RESP 18; TEMP 98.7; O2SAT 93
[2016-07-18] MEDS: HYDROmorphone HCL 2 MG TAB PO PRN ×2 (00:12→05:09)
[2016-07-18 00:18] VITALS: BP 134/63; PULSE 60; RESP 20; TEMP 98; O2SAT 93
[2016-07-18] MEDS: oxyCODONE/ACETAMINOPHEN 7.5 MG/325 MG TAB PO PRN ×3 (02:19→13:41)
[2016-07-18 08:05] LABS: HEMATOCRIT 29.8 % (35.0-46.0); MEAN CELL VOLUME 90.9 FL (80.0-100.0); MEAN CORPUSCULAR HEMOGLOBIN 29.5 PG (27.0-34.0); MEAN CORPUSCULAR HGB CONC 32.5 % (32.0-36.0); PLATELET COUNT 242 TH/MM3 (150-450); RED BLOOD COUNT 3.27 MIL/MM3 (4.00-5.30); RED CELL DISTRIBUTION WIDTH 11.4 % (11.6-17.2); REVIEW FLAG FINAL; WHITE BLOOD COUNT 8.7 TH/MM3 (4.0-11.0)
[2016-07-18 08:08] LABS: POTASSIUM 3.5 MEQ/L (3.5-5.1)
[2016-07-18] MEDS: ESCITALOPRAM OXALATE 20 MG TAB PO SCH (08:09)
[2016-07-18] MEDS: PANTOPRAZOLE SOD 20 MG DELAYED RELEASE TAB PO SCH (08:09)
[2016-07-18] MEDS: LACTOBACILLUS ACIDOPHILUS TAB PO SCH ×2 (08:09→13:41)
[2016-07-18] MEDS: CIPROFLOXACIN 400 MG PREMIX 200 ML IV SCH (08:10)
[2016-07-18] MEDS: NICOTINE 21 MG/24 HR PATCH T-DERMAL SCH (08:10)
[2016-07-18 08:11] LABS: INTERNATIONAL NORMALIZED RATIO 0.9 RATIO
[2016-07-18] MEDS: SODIUM CHLOR 0.9% 1000 ML INJ 1,000 ML IV SCH (08:11)
[2016-07-18] MEDS: SODIUM CHLORIDE 0.9% FLUSH 10 ML FLUSH IV FLUSH SCH (08:11)
[2016-07-18 08:20] LABS: BICARBONATE 20.9 MEQ/L (21.0-32.0)
[2016-07-18 08:22] VITALS: BP 146/81; PULSE 82; RESP 18; TEMP 97.2; O2SAT 92
[2016-07-18 13:07] VITALS: BP 151/80; PULSE 77; RESP 18; TEMP 97.2; O2SAT 94
--- NOTE | 2016-07-18 13:12 | RADHPO ---
EXAM DATE/TIME: 07/18/2016 12:38 [facility] COMPARISON: SHOULDER RIGHT LTD (2VWS), July 15, 2016, 19:06. INDICATIONS : Follow up right shoulder fracture. MEDICAL HISTORY : None. SURGICAL HISTORY : None. ENCOUNTER: Subsequent ACUITY: 4 - 6 days PAIN SCORE: 10/10 LOCATION: Right shoulder FINDINGS: Multiple views of the right shoulder were obtained and again demonstrate a mildly impacted fracture o f the right humeral surgical neck. The fracture appears mildly more impacted on one of the views. The re is diffuse osteopenia and overlying soft tissue swelling. CONCLUSION: The fracture appears mildly more impacted on one of the views. Chang Irving MD on July 18, 2016 at 13:10 Board Certified Radiologist. This report was verified electronically.
[2016-07-18] MEDS ORDERED: CIPR-9 PO (13:42)
[2016-07-18] MEDS ORDERED: OXYC1TAB35 PO (13:42)
[2016-07-18] MEDS ORDERED: LACT PO (13:42)
[2016-07-18] MEDS: ENOXAPARIN SODIUM 40 MG/0.4 ML SYRINGE SQ SCH (13:42)
[2016-07-18] MEDS ORDERED: COMMODE BEDSIDE1 MI1 (13:44)
--- NOTE | 2016-07-18 13:54 | HHI.DS ---
Discharge Summary Admission Date July 15, 2016 at 20:21 Discharge Date: July 18, 2016 Admitting Diagnosis ACUTE KIDNEY INJURY, DEHYDRATION, FX R HUMERUS (1) Fracture of right humerus ICD Code: S42.301A (2) Dehydration ICD Code: E86.0 Diagnosis: Principal (3) Nicotine dependence ICD Code: F17.200 Diagnosis: Secondary (4) UTI (urinary tract infection) ICD Code: N39.0 Diagnosis: Principal (5) Hypotension ICD Code: I95.9 Diagnosis: Secondary (6) Nose fracture ICD Code: S02.2XXA Diagnosis: Principal (7) Acute kidney injury ICD Code: N17.9 Diagnosis: Principal Procedures None Brief History - From Admission Mrs. Hernandez is a 55-year-old female admitted overnight. She was brought here secondary to a fall at home. Her fall she had a nose fracture and a right humerus fracture which is mildly displaced and angulated. Today she complains that her right shoulder keeps popping and is painful. She is in a sling. Other findings on admission were a urinary tract infection. The UTI may have been contributory to her fall. She additionally has been changing from Xanax to Ativan. She does admit that she excellently took Xanax with Ativan with strength being 0.25 mg and 0.5 mg respectively. This could've also contributed to her fall. She has been avoiding alcohol since June 29. She does smoke 2 packs per day. Previous surgery has included removal right neck tumor. She had no complications with surgery. She has no known lung or heart disease. No other complaints. When she came in she was also hypotensive but this has resolved her time. This morning she has mild hypokalemia. CBC/BMP: 07/18/16 0745 07/18/16 0745 Significant Findings Laboratory Tests Test 07/15/16 07/16/16 07/16/16 07/17/16 18:40 00:00 07:46 09:22 Potassium Level 3.1 MEQ/L 3.3 MEQ/L (3.5-5.1) (3.5-5.1) Chloride Level 96 MEQ/L (98-107) Creatinine 2.10 MG/DL (0.50-1.00) Estimat Glomerular Filtration 24 ML/MIN (>89) 59 ML/MIN (>89) 80 ML/MIN (>89) Rate Random Glucose 170 MG/DL (74-106) Troponin I LESS THAN 0.02 NG/ML (0.02-0.05) White Blood Count 14.8 TH/MM3 (4.0-11.0) Red Cell Distribution Width 11.5 % 11.2 % (11.6-17.2) (11.6-17.2) Neutrophils (%) (Auto) 90.2 % (16.0-70.0) Lymphocytes (%) (Auto) 5.8 % (9.0-44.0) Neutrophils # (Auto) 13.4 TH/MM3 (1.8-7.7) Lymphocytes # (Auto) 0.9 TH/MM3 (1.0-4.8) Urine Protein 30 mg/dL (NEG-TRACE) Urine Occult Blood LARGE (NEG) Urine Leukocyte Esterase SMALL (NEG) Urine RBC 10-14 /hpf (0-3) Urine WBC 6-8 /hpf (0-5) Urine Squamous Epithelial 6-8 /hpf (0-5) Cells Urine Bacteria MOD /hpf (NONE) Urine Opiates Screen POS (NEG) Urine Benzodiazepines Screen POS (NEG) Red Blood Count 3.14 MIL/MM3 3.11 MIL/MM3 (4.00-5.30) (4.00-5.30) Hemoglobin 9.4 GM/DL 9.3 GM/DL (11.6-15.3) (11.6-15.3) Hematocrit 28.7 % 28.1 % (35.0-46.0) (35.0-46.0) Calcium Level 8.1 MG/DL 8.0 MG/DL (8.5-10.1) (8.5-10.1) Total Protein 5.9 GM/DL (6.4-8.2) Albumin 2.6 GM/DL (3.4-5.0) Test 07/18/16 07:45 Red Blood Count 3.27 MIL/MM3 (4.00-5.30) Hemoglobin 9.7 GM/DL (11.6-15.3) Hematocrit 29.8 % (35.0-46.0) Red Cell Distribution Width 11.4 % (11.6-17.2) Chloride Level 109 MEQ/L (98-107) Carbon Dioxide Level 20.9 MEQ/L (21.0-32.0) Blood Urea Nitrogen 6 MG/DL (7-18) Calcium Level 8.3 MG/DL (8.5-10.1) Imaging Last Impressions Shoulder X-Ray 07/18/16 0000 Signed Impressions: Service Date/Time: Monday, July 18, 2016 12:38 - CONCLUSION: The fracture appears mildly more impacted on one of the views. Chang Irving MD Maxillofacial CT 07/15/161840 Signed Impressions: Service Date/Time: Friday, July 15, 2016 19:39 - CONCLUSION: Slightly depressed fracture of the tip of the nose. Braon Jimenez MD Head CT 07/15/161840 Signed Impressions: Service Date/Time: Friday, July 15, 2016 19:39 - CONCLUSION: No bleed or other acute intracranial abnormality. Baron Jimenez MD PE at Discharge GENERAL: NAD, A&Ox3 SKIN: Warm and dry. HEAD: Normocephalic. EYES: No scleral icterus. No injection or drainage. NECK: Supple, trachea midline. No JVD or lymphadenopathy. CARDIOVASCULAR: Regular rate and rhythm without murmurs, gallops, or rubs. RESPIRATORY: Breath sounds equal bilaterally. No accessory muscle use. GASTROINTESTINAL: Abdomen soft, non-tender, nondistended. MUSCULOSKELETAL: No cyanosis, or edema. Right arm is in a shoulder immobilizer Hospital Course Mrs. Hernandez is a 55 year old female. She was admitted secondary to fall at home and she sustained a right nasal fracture and right proximal humerus fracture. Additionally she was found to have acute kidney injury related to dehydration and UTI. With resolution of her dehydration she had resolution of her acute kidney injury. UTI is being treated with ciprofloxacin and she shows signs of improvement. Today she is able to ambulate with her arm in a splint. She is feeling ambulatory and stable enough to return to home. Medically she is stable for discharge to home with outpatient follow-up with orthopedics. Pt Condition on Discharge: Stable Discharge Disposition: Discharge Home Discharge Time: <= 30 minutes Discharge Instructions DIET: Follow Instructions for: As Tolerated, No Restrictions Activities you can perform: Regular-No Restrictions Follow up Referrals: Orthopedics - 2 Weeks with Keith Montilla MD PCP Follow-up - 2 Weeks New Medications: Ciprofloxacin (Cipro) 500 Mg Tab 500 MG PO BID Infection #10 Ref 0 TAB Commode Bedside (Commode Bedside) 1 Mis Mis 1 EA .ROUTE DIRECTED #1 EA Lactobacillus Acidophilus (Acidophilus/l-Sporogenes) 1 Tab Tab 1 TAB PO TID Infection #30 TAB Oxycodone-Acetaminophen (Oxycodone-Acetaminophen) 7.5-325 mg Tab 1 TAB PO Q4H PRN PAIN 3-10 #60 TAB Continued Medications: Escitalopram (Lexapro) 20 Mg Tab 20 MG PO DAILY #30 Ref 0 TAB Lisinopril (Lisinopril) 20 Mg Tab 20 MG PO DAILY #30 Ref 0 TAB Lorazepam (Lorazepam) 0.5 Mg Tab 0.5 MG PO BID PRN ANXIETY Ref 0 TAB Omeprazole (Omeprazole) 20 Mg Tab 20 MG PO DAILY #30 Ref 0 TAB Discontinued Medications: Alprazolam (Xanax) 0.25 Mg Tab 0.25 MG PO Q8H PRN ANXIETY Ref 0 TAB Bashir Morrissey MD July 18, 2016 13:53
== END 2016-07-18 18:00 | disposition home or self-care (01) | DRG 563 ==
LOC: PHED 18:04 → PHEDA 20:21 → PH3A 22:10
PROVIDERS: ADMIT Hospitalist; ATTEND Hospitalist
DX: S42.211A Unspecified displaced fracture of surgical neck of right humerus, initial encounter for closed fracture (principal); N17.9 Acute kidney failure, unspecified; I95.9 Hypotension, unspecified; N39.0 Urinary tract infection, site not specified; S02.2XXA Fracture of nasal bones, initial encounter for closed fracture; W18.30XA Fall on same level, unspecified, initial encounter; Y92.009 Unspecified place in unspecified non-institutional (private) residence as the place of occurrence of the external cause; E86.0 Dehydration; E87.6 Hypokalemia; F41.1 Generalized anxiety disorder; R55 Syncope and collapse; K21.9 Gastro-esophageal reflux disease without esophagitis; F17.210 Nicotine dependence, cigarettes, uncomplicated; I10 Essential (primary) hypertension; M85.80 Other specified disorders of bone density and structure, unspecified site; Z85.42 Personal history of malignant neoplasm of other parts of uterus
CPT/HCPCS: 70450; 70486; 73030; 80048; 80053; 80307; 81001; 83735; 84484; 85025; 85027; 85610; 85730; 87086; 93005; 96361; 96374; 96375; J0744; J1650; J2270; J2405; J3480; J7030